=== PATIENT | male | born 1975 | race Asian ===

== ENCOUNTER 2017-08-28 06:02 | Day surgery (SDC) | payer OTHER ==
[2017-08-17 12:08] VITALS: BMI 24.3
[2017-08-28] MEDS ORDERED: BUPIVACAINE HCL/EPINEPHRINE/PF 30 ML VIAL IJ ONE (07:10)
[2017-08-28] MEDS ORDERED: SUCCINYLCHOLINE CHLORIDE 200 MG/10 ML VIAL ONE (07:13)
[2017-08-28] MEDS ORDERED: PROPOFOL 20 ML ONE ×3 (07:13)
[2017-08-28] MEDS ORDERED: MIDAZOLAM HCL 2 MG/2 ML SINGLE DOSE VIAL ONE (07:14)
[2017-08-28] MEDS ORDERED: ONDANSETRON 4 MG/2 ML VIAL IVPUSH PRN (08:49)
[2017-08-28] MEDS ORDERED: oxyCODONE HCL 5 MG TABLET PO PRN ×2 (08:49)
[2017-08-28] MEDS ORDERED: PROMETHAZINE HCL 25 MG/1 ML VIAL IVPB PRN (08:49)
--- NOTE | 2017-08-28 08:53 | OP ---
Operative Note - Note: Operative Date: 08/28/17 Pre-Operative Diagnosis: LEft knee LMT Operation: LKA loose body removal, synovectomy. Surgeon: Ferdinand Retana Anesthesia: General Operative Report Dictated: Yes
--- NOTE | 2017-08-28 08:53 | DS ---
Physical Examination Vital Signs: Vital Signs Temperature 97.8 F 08/28/17 06:40 Pulse Rate 59 L 08/28/17 06:40 Respiratory Rate 16 08/28/17 06:40 Blood Pressure 115/76 08/28/17 06:40 O2 Sat by Pulse Oximetry (%) 97 08/28/17 06:40 Discharge Summary Reason For Visit: LATERAL MENISCAL TEAR LEFT KNEE Condition: Good - Instructions Diet, Activity, Other Instructions: Post Operative Instructions: Knee Arthroscopy Dr Ferdinand Retana 1. Pain following an arthroscopy is variable. Some patients will have more pain than others. You have been provided with a prescription for medication that contains a narcotic. You are not allowed to drive while on this medication. You should NOT take Tylenol (Acetaminophen) when taking the pain medication ( it will result in an overdose). Feel free to take medications such as Ibuprofen or Naprosyn in addition to the pain medicine if you do not have any problems with the NSAID class of medications. 2. You are allowed to remove the bandages and shower in 24 hours unless directed otherwise. You are not allowed to bathe or go swimming until the sutures are removed. Put band-aids on the sutures after your shower and do not put any creams or lotions over the incisions. 3. You are allowed to put all your weight on the leg and bend your knee, 4. Apply ice to the knee for 15 min every hour or so. You may continue this for as many days as you like. 5. Please call the office to schedule a visit to have your sutures removed. 6. If for any reason you believe you may have an infection or are concerned, please feel free to call me. I can be reached through our office number 24 hours a day. 7. Please call our office with any questions; we will review the surgical findings during your post operative visit. Disposition: HOME - Home Medications Comprehensive Discharge Medication List: Ambulatory Orders NK [No Known Home Medication] 08/17/17
[2017-08-28 09:04] VITALS: PULSE 63
[2017-08-28 09:38] VITALS: BP 102/65; TEMP 98
--- NOTE | 2017-09-01 13:51 | PATH ---
Surgical Pathology Report Patient Name: JONNIE HUYNH Med. Rec. #: [id number] /Age/Gender: 1975 (Age: 42) / F Account: [id number] Location: [facility] Taken: 08/28/2017 Received: 08/28/2017 Reported: 09/01/2017 Physicians: Ferdinand Retana M.D. Specimen(s) Received LEFT KNEE SHAVINGS Clinical History He is 1B part of a AAA she was follows this is a one of Left lateral meniscus tear Final Diagnosis KNEE SHAVINGS, LEFT, ARTHROSCOPY: FRAGMENTS OF DENSE FIBROCONNECTIVE TISSUE, ADIPOSE TISSUE, AND SYNOVIUM. Electronically Signed Roxann Terry M.D. Gross Description Received in formalin, labeled "shavings left knee," is a 4.0 x 2.5 x 0.3 cm. aggregate of thomson-yellow soft tissue fragments. A cash applications representative portion is submitted in one cassette. /08/28/2017 [facility]08/28/2017
== END 2017-08-28 10:09 | disposition home or self-care (01) ==
LOC: FASU 06:02 → EDSEX 07:30 → FASU 10:09
PROVIDERS: ATTEND Orthopaedic Surgery
PROC: 0SBD4ZZ Excision of Left Knee Joint, Percutaneous Endoscopic Approach (ICD-10-PCS; 2017-08-28)
PROC: 0SCD4ZZ Extirpation of Matter from Left Knee Joint, Percutaneous Endoscopic Approach (ICD-10-PCS; principal; 2017-08-28 08:06)
DX: M65.862 Other synovitis and tenosynovitis, left lower leg (principal); M23.42 Loose body in knee, left knee
CPT/HCPCS: 88304-TC